=== PATIENT | male | born 1940 | race Hispanic/Latino ===

== ENCOUNTER 2021-09-15 18:00 | Emergency (ER) | payer MEDICARE ==
[2021-09-15] MEDS ORDERED: ACETAMINOPHEN 325 MG TAB PO ONE (18:51)
[2021-09-15] MEDS ORDERED: TETANUS,DIPH,PERTUSS(ACELL) VACCINE 0.5 ML SYRINGE IM ONE (18:51)
[2021-09-15 19:01] VITALS: BP 155/59
--- NOTE | 2021-09-15 19:09 | Emergency Department Report ---
ED Fall HPI - General Chief Complaint: Extremity Injury, Upper Stated Complaint: FELL INJURED HEAD/HAND Time Seen by Provider: 09/15/21 18:50 Source: patient Mode of arrival: Ambulatory - History of Present Illness Initial Comments: Patient is a 81-year-old male who presents emergency room complaints of a fall that occurred earlier today. Patient states that he accidentally stepped wrong off the curb and fell and landed on a left outstretched hand and hit his head against the ground. He is complaining of left hand pain and swelling. He also has an abrasion to his forehead. Patient states that he is on Xarelto. He denies any loss of consciousness, vomiting, vision changes, numbness, weakness. He is unsure of his last tetanus immunization. He has an allergy to codeine. - Related Data Home Medications Medication Instructions Recorded Confirmed Last Taken Cholecalciferol (Vitamin D3) 5,000 unit PO DAILY 01/30/16 01/30/16 Unknown [Vitamin D3] Cyanocobalamin [Vitamin B-12] 1,000 mcg IM QMONTH 01/30/16 01/30/16 Unknown Levothyroxine Sodium [Synthroid] 175 mcg PO QDAY 01/30/16 01/30/16 Unknown Primidone [Mysoline] 500 mg PO QHS 01/30/16 01/30/16 Unknown Primidone [Mysoline] 750 mg PO QAM 01/30/16 01/30/16 Unknown Propranolol HCl 20 mg PO TID 01/30/16 01/30/16 Unknown Rivaroxaban [Xarelto] 20 mg PO QDAY 01/30/16 01/30/16 Unknown Sertraline [Zoloft] 150 mg PO QHS 01/30/16 01/30/16 Unknown Simvastatin (NF) [Zocor TAB] 40 mg PO QHS 01/30/16 01/30/16 Unknown Zolpidem [Ambien] 5 mg PO QHS PRN 01/30/16 01/30/16 Unknown buPROPion SR [Wellbutrin SR] 150 mg PO QAM 01/30/16 01/30/16 Unknown clonazePAM 1 mg PO QHS 01/30/16 01/30/16 Unknown Previous Rx's Medication Instructions Recorded Last Taken Type Amoxicillin/K Clav Tab [Augmentin 1 each PO Q12HR #20 tablet 02/04/16 Unknown Rx 500 MG TAB] HYDROcodone/APAP 5-325 [[place] 1 each PO Q6HR PRN #30 tablet 02/04/16 Unknown Rx 5-325 mg TAB] Acetaminophen [Tylenol] 650 mg PO Q8HR PRN #20 capsule 09/15/21 Unknown Rx traMADoL [Ultram 50 MG tab] 50 mg PO Q6HR PRN #8 tablet 09/15/21 Unknown Rx Allergies Allergy/AdvReac Type Severity Reaction Status Date / Time codeine Allergy Hives Verified 01/30/16 11:31 ED Review of Systems ROS: Stated complaint: FELL INJURED HEAD/HAND Other details as noted in HPI Comment: All other systems reviewed and negative ED Past Medical Hx - Past Medical History Hx Hypertension: Yes Hx Heart Attack/AMI: No Hx Congestive Heart Failure: No Hx Diabetes: No Hx Liver Disease: No Hx Seizures: No Hx Kidney Stones: Yes Hx Psychiatric Treatment: Yes (Depression) Hx Asthma: No Hx COPD: No Additional medical history: essential tremors. AFIB. Sleep apnea - Surgical History Additional Surgical History: cataract surg YOLI eyes - Social History Smoking Status: Never Smoker - Medications Home Medications: Home Medications Medication Instructions Recorded Confirmed Last Taken Type Cholecalciferol (Vitamin D3) 5,000 unit PO DAILY 01/30/16 01/30/16 Unknown History [Vitamin D3] Cyanocobalamin [Vitamin B-12] 1,000 mcg IM QMONTH 01/30/16 01/30/16 Unknown History Levothyroxine Sodium [Synthroid] 175 mcg PO QDAY 01/30/16 01/30/16 Unknown History Primidone [Mysoline] 500 mg PO QHS 01/30/16 01/30/16 Unknown History Primidone [Mysoline] 750 mg PO QAM 01/30/16 01/30/16 Unknown History Propranolol HCl 20 mg PO TID 01/30/16 01/30/16 Unknown History Rivaroxaban [Xarelto] 20 mg PO QDAY 01/30/16 01/30/16 Unknown History Sertraline [Zoloft] 150 mg PO QHS 01/30/16 01/30/16 Unknown History Simvastatin (NF) [Zocor TAB] 40 mg PO QHS 01/30/16 01/30/16 Unknown History Zolpidem [Ambien] 5 mg PO QHS PRN 01/30/16 01/30/16 Unknown History buPROPion SR [Wellbutrin SR] 150 mg PO QAM 01/30/16 01/30/16 Unknown History clonazePAM 1 mg PO QHS 01/30/16 01/30/16 Unknown History Amoxicillin/K Clav Tab [Augmentin 1 each PO Q12HR #20 tablet 02/04/16 Unknown Rx 500 MG TAB] HYDROcodone/APAP 5-325 [[place] 1 each PO Q6HR PRN #30 tablet 02/04/16 Unknown Rx 5-325 mg TAB] Acetaminophen [Tylenol] 650 mg PO Q8HR PRN #20 capsule 09/15/21 Unknown Rx traMADoL [Ultram 50 MG tab] 50 mg PO Q6HR PRN #8 tablet 09/15/21 Unknown Rx ED Physical Exam - General Limitations: No Limitations General appearance: alert, in no apparent distress - Head Head exam: Present: other (abrasion present to the left forehead, no facial or bony skull ttp, no crepitus, no deformity) - Eye Eye exam: Present: normal appearance, PERRL, EOMI, other (no signs of entrapment ). Absent: periorbital swelling, periorbital tenderness - ENT ENT exam: Present: mucous membranes moist - Neck Neck exam: Present: normal inspection, full ROM. Absent: tenderness, meningismus - Respiratory Respiratory exam: Present: normal lung sounds bilaterally. Absent: respiratory distress, wheezes, rales, rhonchi, stridor, chest wall tenderness, accessory muscle use, decreased breath sounds, prolonged expiratory - Cardiovascular Cardiovascular Exam: Present: regular rate, normal rhythm, normal heart sounds. Absent: systolic murmur, diastolic murmur, rubs, gallop - Extremities Exam Extremities exam: Present: other (there is ecchymosis and edema present to the left pinky and left hand, ttp to the left hand and pinky and left wrist, decreased ROM secondary to pain, small abrasion to the right pinky, no bony ttp of the RUE, FROM of the RUE, neurovascularly intact, subungual hematoma left pinky nail, nail intact) - Back Exam Back exam: Present: normal inspection, full ROM. Absent: paraspinal tenderness, vertebral tenderness - Neurological Exam Neurological exam: Present: alert, oriented X3 - Psychiatric Psychiatric exam: Present: normal affect, normal mood - Skin Skin exam: Present: warm, dry ED Course Vital Signs 09/15/21 18:31 Temperature 98.4 F Pulse Rate 72 Respiratory 20 Rate Blood Pressure 155/59 O2 Sat by Pulse 99 Oximetry ED Medical Decision Making - Radiology Data Radiology results: report reviewed Ordering Physician: KARON ROBERTS Date of Service: 09/15/21 Procedure(s): CT facial bones wo con Accession Number(s): [id number] cc: KARON ROBERTS CT MAXILLOFACIAL WITHOUT CONTRAST INDICATION / CLINICAL INFORMATION: fall, left facial abrasion, on xarelto. TECHNIQUE: All CT scans at this location are performed using CT dose reduction for ALARA by means of automated exposure control. COMPARISON: None available. FINDINGS: FACIAL BONES: There is hematoma and edema involving left frontal scalp. Howev er, there is no clear CT evidence of acute fracture of the facial bones. The orbital flores, sinuses and zygomatic arches appear intact. PARANASAL SINUSES: There is prominence air-fluid level posteriorly within the left sphenoid sinus. There is mild mucosal thickening along the anterior sphenoid sinuses. There is also scattered opacification and mucosal thickening within the ethmoid air cells. The nasal septum is essentially midline. ORBITS: The optic globes demonstrate appropriate size and configuration. No significant post septal inflammatory changes are identified. VISUALIZED INTRACRANIAL STRUCTURES: The CT Brain will be dictated separately. ADDITIONAL FINDINGS: None. IMPRESSION: 1. There is a hematoma involving left frontal scalp. However, there is no clear CT evidence of acute fracture of the facial bones. 2. There is sinus inflammatory disease as described. Signer Name: Alan Reddy MD Signed: 09/15/2021 7:43 PM Workstation Name: [id number] Transcribed By: MR Dictated By: Alan Reddy MD Electronically Authenticated By: Alan Reddy MD Signed Date/Time: 09/15/211942 DD/ 38 TD/TT: Ordering Physician: KARON ROBERTS Date of Service: 09/15/21 Procedure(s): XR hand 3+V LT Accession Number(s): [id number] cc: KARON ROBERTS Fluoro Time In Minutes: LEFT HAND, 3 VIEWS INDICATION / CLINICAL INFORMATION: fall, left pinky/left hand injury. COMPARISON: None available. FINDINGS: There is a mildly displaced dominant noted intra-articular fracture through the base of the proximal phalanx of the little finger. There is also the suggestion of a nondisplaced fracture through the distal metadiaphysis of the fourth metacarpal bone. Degenerative changes are noted throughout the interphalangeal joints. IMPRESSION: 1. Mildly displaced comminuted intra-articular fracture involving the base of the proximal phalanx of the little finger. 2. Nondisplaced nonintra-articular fracture involving the distal metadiaphysis of the fourth metacarpal. Signer Name: Nani Whitfield MD Signed: 09/15/2021 7:21 PM Workstation Name: [id number] Transcribed By: Dictated By: Nani Whitfield MD Electronically Authenticated By: Nani Whitfield MD Signed Date/Time: 09/15/211920 DD/ 17 TD/TT: Ordering Physician: KARON ROBERTS Date of Service: 09/15/21 Procedure(s): XR wrist 3+V LT Accession Number(s): [id number] cc: KARON ROBERTS Fluoro Time In Minutes: LEFT WRIST 3 VIEWS INDICATION / CLINICAL INFORMATION: fall, left pinky/left hand injury. COMPARISON: None available. FINDINGS: Cortical irregularity along the anterior aspect of the distal radius suggesting very subtle fracture. This is not confirmed on the additional views. No malalignment. No additional suspected area of fracture. IMPRESSION: Suspect very subtle fracture involving the distal radius based on cortical irregularity on the lateral view noted along the anterior aspect of the radius. Signer Name: Nani Whitfield MD Signed: 09/15/2021 7:22 PM Workstation Name: [id number] Transcribed By: Dictated By: Nani Whitfield MD Electronically Authenticated By: Nani Whitfield MD Signed Date/Time: 09/15/211921 DD/ 20 TD/TT: Ordering Physician: KARON ROBERTS Date of Service: 09/15/21 Procedure(s): CT head/brain wo con Accession Number(s): [id number] cc: KARON ROBERTS CT head/brain wo con INDICATION / CLINICAL INFORMATION: 81 years Male; fall, abrasion to left forehead, on xarelto. TECHNIQUE: Routine CT head without contrast. All CT scans at this location are performed using CT dose reduction for ALARA by means of automated exposure control. COMPARISON: None. FINDINGS: BRAIN / INTRACRANIAL CONTENTS: There is moderate cerebral white matter disease most consistent with microvascular angiopathy. This mild cerebral atrophy with associated prominence of the ventricular system. There is no clear CT evidence of acute intracranial hemorrhage or significant mass effect. ORBITS: No significant abnormality of visualized orbits. SINUSES / MASTOIDS: There is edema involving the left frontal scalp. There is mild mucosal thickening within the ethmoid air cells at. There is moderate air-fluid level along the posterior left sphenoid sinus. CRANIOCERVICAL JUNCTION: No significant abnormality. ADDITIONAL FINDINGS: The calvarium appears intact. IMPRESSION: 1. There is edema involving left frontal scalp without CT evidence of acute intracranial hemorrhage. 2. 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 Signer Name: Alan Reddy MD Signed: 09/15/2021 7:38 PM Workstation Name: [id number] Transcribed By: MR Dictated By: Alan Reddy MD Electronically Authenticated By: Alan Reddy MD Signed Date/Time: 09/15/211937 DD/ 35 TD/TT: - Medical Decision Making Patient is a 81-year-old male who presents emergency room complaints of a fall that occurred earlier today. Patient states that he accidentally stepped wrong off the curb and fell and landed on a left outstretched hand and hit his head against the ground. He is complaining of left hand pain and swelling. He also has an abrasion to his forehead. Patient states that he is on Xarelto. He denies any loss of consciousness, vomiting, vision changes, numbness, weakness. He is unsure of his last tetanus immunization. He has an allergy to codeine. Vitals are stable. On exam:there is ecchymosis and edema present to the left pinky and left hand, ttp to the left hand and pinky and left wrist, decreased ROM secondary to pain, small abrasion to the right pinky, no bony ttp of the RUE, FROM of the RUE, neurovascularly intact, subungual hematoma left pinky nail, nail intact, abrasion present to the left forehead, no facial or bony skull ttp, no crepitus, no deformity. CT facial bones: 1. There is a hematoma involving left frontal scalp. However, there is no clear CT evidence of acute fracture of the facial bones. 2. There is sinus inflammatory disease as described. XR left hand: 1. Mildly displaced comminuted intra-articular fracture involving the base of the proximal phalanx of the little finger. 2. Nondisplaced nonintra-articular fracture involving the distal metadiaphysis of the fourth metacarpal. XR left wrist: IMPRESSION: Suspect very subtle fracture involving the distal radius based on cortical irregularity on the lateral view noted along the anterior aspect of the radius. CT head without contrast: 1. There is edema involving left frontal scalp without CT evidence of acute intracranial hemorrhage. 2. 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 Discussed all results with patient and answer questions. Patient given tetanus immunization and Tylenol. Patient placed in sugar tong splint and the splint was extended past the fingertips. Patient remained neurovascularly intact. Discussed the importance of outpatient primary care and orthopedic follow-up. Discussed very strict return precautions with patient. Advised patient Please take medication as prescribed. Follow-up with a orthopedic doctor. Follow-up with your primary care doctor. Return to emergency room for any new or worsening symptoms. Critical care attestation.: If time is entered above; I have spent that time in minutes in the direct care of this critically ill patient, excluding procedure time. ED Disposition Clinical Impression: Scalp hematoma Qualifiers: Encounter type: initial encounter Qualified Code(s): S00.03XA - Contusion of scalp, initial encounter Forehead abrasion Qualifiers: Encounter type: initial encounter Qualified Code(s): S00.81XA - Abrasion of other part of head, initial encounter Fracture of phalanx of little finger Qualifiers: Encounter type: initial encounter Fracture type: closed Phalanx: proximal Fracture alignment: displaced Laterality: left Qualified Code(s): S62.617A - Displaced fracture of proximal phalanx of left little finger, initial encounter for closed fracture Closed fracture of 4th metacarpal Qualifiers: Encounter type: initial encounter Metacarpal location: unspecified portion of metacarpal Fracture alignment: nondisplaced Laterality: left Qualified Code(s): S62.305A - Unspecified fracture of fourth metacarpal bone, left hand, initial encounter for closed fracture Distal radius fracture Qualifiers: Encounter type: initial encounter Fracture type: closed Fracture morphology: unspecified fracture morphology Laterality: left Qualified Code(s): S52.502A - Unspecified fracture of the lower end of left radius, initial encounter for closed fracture Disposition: HOME / SELF CARE / HOMELESS Is pt being admited?: No Does the pt Need Aspirin: No Condition: Stable Additional Instructions: Please take medication as prescribed. Follow-up with a orthopedic doctor. Follow-up with your primary care doctor. Return to emergency room for any new or worsening symptoms. Prescriptions: Acetaminophen [Tylenol] 650 mg PO Q8HR PRN #20 capsule PRN Reason: pain traMADoL [Ultram 50 MG tab] 50 mg PO Q6HR PRN #8 tablet PRN Reason: Pain , Severe (7-10) Referrals: [facility] [Provider Group] - 2-3 Days CHICA PITTS MD [Staff Physician] - 2-3 Days your, primary care doctor [Other] - 2-3 Days Time of Disposition: 20:05 Print Language: LAO
--- NOTE | 2021-09-15 19:25 | XRay Report ---
LEFT HAND, 3 VIEWS INDICATION / CLINICAL INFORMATION: fall, left pinky/left hand injury. COMPARISON: None available. FINDINGS: There is a mildly displaced dominant noted intra-articular fracture through the base of the proximal phalanx of the little finger. There is also the suggestion of a nondisplaced fracture through the distal metadiaphysis of the fourt h metacarpal bone. Degenerative changes are noted throughout the interphalangeal joints. IMPRESSION: 1. Mildly displaced comminuted intra-articular fracture involving the base of the proximal phalanx of the little finger. 2. Nondisplaced nonintra-articular fracture involving the distal metadiaphysis of the fourth metacarp al. Signer Name: Nani Whitfield MD Signed: 09/15/2021 7:21 PM Workstation Name: [id number]
--- NOTE | 2021-09-15 19:27 | XRay Report ---
LEFT WRIST 3 VIEWS INDICATION / CLINICAL INFORMATION: fall, left pinky/left hand injury. COMPARISON: None available. FINDINGS: Cortical irregularity along the anterior aspect of the distal radius suggesting very subtle fracture. This is not confirmed on the additional views. No malalignment. No additional suspected area of frac ture. IMPRESSION: Suspect very subtle fracture involving the distal radius based on cortical irregularity o n the lateral view noted along the anterior aspect of the radius. Signer Name: Nani Whitfield MD Signed: 09/15/2021 7:22 PM Workstation Name: [id number]
--- NOTE | 2021-09-15 19:43 | Cat Scan Report ---
CT head/brain wo con INDICATION / CLINICAL INFORMATION: 81 years Male; fall, abrasion to left forehead, on xarelto. TECHNIQUE: Routine CT head without contrast. All CT scans at this location are performed using CT dos e reduction for ALARA by means of automated exposure control. COMPARISON: None. FINDINGS: BRAIN / INTRACRANIAL CONTENTS: There is moderate cerebral white matter disease most consistent with m icrovascular angiopathy. This mild cerebral atrophy with associated prominence of the ventricular sys tem. There is no clear CT evidence of acute intracranial hemorrhage or significant mass effect. ORBITS: No significant abnormality of visualized orbits. SINUSES / MASTOIDS: There is edema involving the left frontal scalp. There is mild mucosal thickening within the ethmoid air cells at. There is moderate air-fluid level along the posterior left sphenoid sinus. CRANIOCERVICAL JUNCTION: No significant abnormality. ADDITIONAL FINDINGS: The calvarium appears intact. IMPRESSION: 1. There is edema involving left frontal scalp without CT evidence of acute intracranial hemorrhage. 2. 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 Signer Name: Alan Reddy MD Signed: 09/15/2021 7:38 PM Workstation Name: [id number]
--- NOTE | 2021-09-15 19:47 | Cat Scan Report ---
CT MAXILLOFACIAL WITHOUT CONTRAST INDICATION / CLINICAL INFORMATION: fall, left facial abrasion, on xarelto. TECHNIQUE: All CT scans at this location are performed using CT dose reduction for ALARA by means of automated e xposure control. COMPARISON: None available. FINDINGS: FACIAL BONES: There is hematoma and edema involving left frontal scalp. However, there is no clear CT evidence of acute fracture of the facial bones. The orbital flores, sinuses and zygomatic arches appe ar intact. PARANASAL SINUSES: There is prominence air-fluid level posteriorly within the left sphenoid sinus. Th ere is mild mucosal thickening along the anterior sphenoid sinuses. There is also scattered opacifica tion and mucosal thickening within the ethmoid air cells. The nasal septum is essentially midline. ORBITS: The optic globes demonstrate appropriate size and configuration. No significant post septal i nflammatory changes are identified. VISUALIZED INTRACRANIAL STRUCTURES: The CT Brain will be dictated separately. ADDITIONAL FINDINGS: None. IMPRESSION: 1. There is a hematoma involving left frontal scalp. However, there is no clear CT evidence of acut e fracture of the facial bones. 2. There is sinus inflammatory disease as described. Signer Name: Alan Reddy MD Signed: 09/15/2021 7:43 PM Workstation Name: [id number]
== END 2021-09-15 21:34 | disposition home or self-care (01) ==
LOC: ED 18:00
DX: S62.617A Displaced fracture of proximal phalanx of left little finger, initial encounter for closed fracture (principal); S62.305A Unspecified fracture of fourth metacarpal bone, left hand, initial encounter for closed fracture; S52.502A Unspecified fracture of the lower end of left radius, initial encounter for closed fracture; S00.81XA Abrasion of other part of head, initial encounter; I10 Essential (primary) hypertension; R22.32 Localized swelling, mass and lump, left upper limb; S00.03XA Contusion of scalp, initial encounter; W19.XXXA Unspecified fall, initial encounter; Y93.89 Activity, other specified; Y92.89 Other specified places as the place of occurrence of the external cause; Y99.8 Other external cause status
CPT/HCPCS: 70450; 70486; 90471; 90715; 99284

== ENCOUNTER 2021-11-10 09:26 | Emergency (ER) | payer MEDICARE ==
[2021-11-10] MEDS ORDERED: fentaNYL 100 MCG/2 ML INJ IV ONE (10:05)
[2021-11-10] MEDS ORDERED: ONDANSETRON 4 MG/2 ML INJ IM ONE (10:05)
[2021-11-10] MEDS ORDERED: fentaNYL 100 MCG/2 ML INJ IM ONE ×2 (10:11→12:46)
--- NOTE | 2021-11-10 10:11 | Emergency Department Report ---
HPI - General Chief Complaint: Back Pain/Injury Time Seen by Provider: 11/10/21 09:51 - HPI HPI: Room 17 The patient is an 81-year-old male present with a chief complaint of back pain. Patient states he started having low back pain approximate 3 weeks ago the pain waxes and wanes. Patient states the pain worsens with movement. Patient describes the pain as sharp in nature. Patient denies nausea/vomiting, dysuria or hematuria. Patient denies history of fever. Patient denies abdominal pain. Patient states it feels similar to kidney stones he has had in the past. Patient currently gets his pain a score of 8-9/10 ED Past Medical Hx - Past Medical History Hx Hypertension: Yes Hx Diabetes: Yes (Diet controlled) Hx Kidney Stones: Yes Hx Psychiatric Treatment: Yes (Depression) Additional medical history: essential tremors, hypothyroidism. AFIB. Sleep apnea - Surgical History Hx Cholecystectomy: Yes Additional Surgical History: cataract surg YOLI eyes - Family History Family history: no significant - Social History Smoking Status: Former Smoker (None x20 years) Substance Use Type: Alcohol (Rarely) - Medications Home Medications: Home Medications Medication Instructions Recorded Confirmed Last Taken Type Cholecalciferol (Vitamin D3) 5,000 unit PO DAILY 01/30/16 01/30/16 Unknown History [Vitamin D3] Cyanocobalamin [Vitamin B-12] 1,000 mcg IM QMONTH 01/30/16 01/30/16 Unknown History Levothyroxine Sodium [Synthroid] 175 mcg PO QDAY 01/30/16 01/30/16 Unknown History Primidone [Mysoline] 500 mg PO QHS 01/30/16 01/30/16 Unknown History Primidone [Mysoline] 750 mg PO QAM 01/30/16 01/30/16 Unknown History Propranolol HCl 20 mg PO TID 01/30/16 01/30/16 Unknown History Rivaroxaban [Xarelto] 20 mg PO QDAY 01/30/16 01/30/16 Unknown History Sertraline [Zoloft] 150 mg PO QHS 01/30/16 01/30/16 Unknown History Simvastatin (NF) [Zocor TAB] 40 mg PO QHS 01/30/16 01/30/16 Unknown History Zolpidem [Ambien] 5 mg PO QHS PRN 01/30/16 01/30/16 Unknown History buPROPion SR [Wellbutrin SR] 150 mg PO QAM 01/30/16 01/30/16 Unknown History clonazePAM 1 mg PO QHS 01/30/16 01/30/16 Unknown History Amoxicillin/K Clav Tab [Augmentin 1 each PO Q12HR #20 tablet 02/04/16 Unknown Rx 500 MG TAB] HYDROcodone/APAP 5-325 [[place] 1 each PO Q6HR PRN #30 tablet 02/04/16 Unknown Rx 5-325 mg TAB] Acetaminophen [Tylenol] 650 mg PO Q8HR PRN #20 capsule 09/15/21 Unknown Rx traMADoL [Ultram 50 MG tab] 50 mg PO Q6HR PRN #8 tablet 09/15/21 Unknown Rx HYDROcodone/APAP 5-325 [[place] 1 - 2 each PO Q6HR PRN #20 tablet 11/10/21 Unknown Rx 5/325] Ketorolac [Toradol] 10 mg PO Q6H PRN #16 tablet 11/10/21 Unknown Rx Promethazine HCl [Phenergan SUPPOS] 25 mg RC Q6H PRN #5 supp.rect 11/10/21 Unknown Rx Promethazine [Phenergan] 25 mg PO Q6HR PRN #20 tab 11/10/21 Unknown Rx ED Review of Systems ROS: Stated complaint: back pain Other details as noted in HPI Constitutional: denies: fever Eyes: denies: eye pain ENT: denies: throat pain Respiratory: no symptoms reported Cardiovascular: denies: chest pain Endocrine: no symptoms reported Gastrointestinal: denies: abdominal pain, nausea, vomiting Genitourinary: denies: dysuria, hematuria Musculoskeletal: back pain Neurological: denies: headache Physical Exam - Physical Exam Physical Exam: GENERAL: The patient is well-developed well-nourished male lying on stretcher not appearing to be in acute distress. [] HEENT: Normocephalic. Atraumatic. Extraocular motions are intact. Patient has moist mucous membranes. NECK: Supple. Trachea midline CHEST/LUNGS: Clear to auscultation. There is no respiratory distress noted. HEART/CARDIOVASCULAR: Irregularly irregular. There is no tachycardia. There is no gallop rub or murmur. ABDOMEN: Abdomen is soft, nontender. Patient has normal bowel sounds. There is no abdominal distention. There are no abdominal bruits SKIN: There is no rash. There is no edema. There is no diaphoresis. NEURO: The patient is awake, alert, and oriented. The patient is cooperative. The patient has no focal neurologic deficits. The patient has normal speech. GCS 15 MUSCULOSKELETAL: There is right paraspinous lumbar pain. No axial step-off. There is no evidence of acute injury. ED Medical Decision Making - Lab Data Result diagrams: 11/10/21 10:48 11/10/21 10:48 Laboratory Tests 11/10/21 11/10/21 11/10/21 10:48 10:48 11:25 WBC 9.5 RBC 4.95 Hgb 14.3 Hct 43.1 MCV 87 MCH 29 MCHC 33 RDW 12.9 L Plt Count 219 Lymph % (Auto) 16.0 Haakon % (Auto) 5.7 Eos % (Auto) 0.7 Baso % (Auto) 0.9 Lymph # (Auto) 1.5 Haakon # (Auto) 0.5 Eos # (Auto) 0.1 Baso # (Auto) 0.1 Seg Neutrophils % 76.7 H Seg Neutrophils # 7.3 Sodium 139 Potassium 3.7 Chloride 99.9 Carbon Dioxide 26 Anion Gap 17 BUN 19 Creatinine 0.7 L Estimated GFR > 60 BUN/Creatinine Ratio 27 Glucose 156 H Calcium 9.5 Urine Color Straw Urine Turbidity Clear Urine pH 8.0 H Ur Specific [place] 1.010 Urine Protein <15 mg/dl Urine Glucose (UA) Neg Urine Ketones Neg Urine Blood Neg Urine Nitrite Neg Urine Bilirubin Neg Urine Urobilinogen < 2.0 Ur Leukocyte Esterase Neg Urine WBC (Auto) < 1.0 Urine RBC (Auto) < 1.0 - Radiology Data Radiology results: report reviewed (CT abdomen pelvis), image reviewed (CT abdomen pelvis) [address] [address] Cat Scan Report Signed Patient: ANTONI ANDREWS MR#: [id number] : 1940 Acct:[id number] Age/Sex: 81 / M ADM Date: 11/10/21 Loc: ED Attending Dr: Ordering Physician: CHANDAN SUGGS MD Date of Service: 11/10/21 Procedure(s): CT abdomen pelvis wo con Accession Number(s): [id number] cc: CHANDAN SUGGS MD CT abdomen pelvis wo con INDICATION: Lumbar and right flank pain. COMPARISON: None TECHNIQUE: Abdominal and pelvic CT exam performed. All CT scans at this location are performed using CT dose reduction for ALARA by means of automated exposure control. FINDINGS: CT ABDOMEN and PELVIS: Lung Bases: No significant abnormalit y. Liver: No significant abnormality. Biliary: Gallbladder is surgically absent. Spleen: No significant abnormality. Pancreas: No significant abnormality. Adrenals: No significant abnormality. Kidneys: 1.1 cm stone seen in the mid right ureter. Mild right hydronephrosis. There are a few other small bilateral nonobstructing stones measure up to approximately 3 mm. Lymphatics: No lymphadenopathy. Vasculature: No significant abnormality. Bowel: No significant abnormality. Normal appendix. The appendix extends slight into a small right fat-containing inguinal hernia (Amyand hernia). Pelvis: No significant abnormality. Osseous Structures: No aggressive osseous lesion. Additional Findings: None IMPRESSION: 1. 1.1 cm stone seen in the right mid ureter resulting in mild hydroureteronephrosis. Signer Name: Diomedes Brewer MD Signed: 11/10/2021 11:00 AM Workstation Name: [id number] Transcribed By: TARIK Dictated By: Diomedes Brewer MD Electronically Authenticated By: Diomedes Brewer MD Signed Date/Time: 11/10/21 1100 DD/ 1054 TD/TT: Print Cancel - Differential Diagnosis Lumbar radiculopathy, renal colic, pyelonephritis, Critical care attestation.: If time is entered above; I have spent that time in minutes in the direct care of this critically ill patient, excluding procedure time. ED Disposition Clinical Impression: Acute back pain, Renal colic on right side Disposition: 01 HOME / SELF CARE / HOMELESS Is pt being admited?: No Does the pt Need Aspirin: No Condition: Stable Additional Instructions: Return to the emergency department should you develop worsening symptoms, inability to tolerate food or liquids, high fever or any other concerns Prescriptions: HYDROcodone/APAP 5-325 [[place] 5/325] 1 - 2 each PO Q6HR PRN #20 tablet PRN Reason: Pain Promethazine [Phenergan] 25 mg PO Q6HR PRN #20 tab PRN Reason: Nausea Promethazine HCl [Phenergan SUPPOS] 25 mg RC Q6H PRN #5 supp.rect PRN Reason: Vomiting Ketorolac [Toradol] 10 mg PO Q6H PRN #16 tablet PRN Reason: Pain Referrals: LY ALAMO MD [Staff Physician] - [facility] (Dr. Alamo is a urologist. Please follow-up with him for further evaluation) Time of Disposition: 12:45
--- NOTE | 2021-11-10 11:05 | Cat Scan Report ---
CT abdomen pelvis wo con INDICATION: Lumbar and right flank pain. COMPARISON: None TECHNIQUE: Abdominal and pelvic CT exam performed. All CT scans at this location are performed using CT dose reduction for ALARA by means of automated exposure control. FINDINGS: CT ABDOMEN and PELVIS: Lung Bases: No significant abnormality. Liver: No significant abnormality. Biliary: Gallbladder is surgically absent. Spleen: No significant abnormality. Pancreas: No significant abnormality. Adrenals: No significant abnormality. Kidneys: 1.1 cm stone seen in the mid right ureter. Mild right hydronephrosis. There are a few other small bilateral nonobstructing stones measure up to approximately 3 mm. Lymphatics: No lymphadenopathy. Vasculature: No significant abnormality. Bowel: No significant abnormality. Normal appendix. The appendix extends slight into a small right f at-containing inguinal hernia (Amyand hernia). Pelvis: No significant abnormality. Osseous Structures: No aggressive osseous lesion. Additional Findings: None IMPRESSION: 1. 1.1 cm stone seen in the right mid ureter resulting in mild hydroureteronephrosis. Signer Name: Diomedes Brewer MD Signed: 11/10/2021 11:00 AM Workstation Name: [id number]
[2021-11-10 11:08] LABS: Basophils # (Auto) 0.1 K/mm3 (0.0-0.1); Basophils % (Auto) 0.9 % (0.0-1.8); Eosinophils # (Auto) 0.1 K/mm3 (0.0-0.4); Eosinophils % (Auto) 0.7 % (0.0-4.3); Hematocrit 43.1 % (35.5-45.6); Hemoglobin 14.3 gm/dl (11.8-15.2); Lymphocytes # (Auto) 1.5 K/mm3 (1.2-5.4); Mean Corpuscular HGB Conc 33 % (32-34); Mean Corpuscular Volume 87 fl (84-94); Monocytes # (Auto) 0.5 K/mm3 (0.0-0.8); Monocytes % (Auto) 5.7 % (0.0-7.3); Platelet Count 219 K/mm3 (140-440); Red Blood Count 4.95 M/mm3 (3.65-5.03); Red Cell Distribution Width 12.9 % (13.2-15.2)
[2021-11-10 11:22] LABS: Blood Urea Nitrogen 19 mg/dL (9-20); Calcium 9.5 mg/dL (8.4-10.2); Hemolysis Index 4
[2021-11-10 11:26] LABS: BUN/Creatinine Ratio 27
[2021-11-10 12:14] LABS: Bilirubin,Urine NEG (Negative); Blood,Urine NEG (Negative); Color,Urine Straw (Yellow); Protein,Urine <15 mg/dL mg/dL (Negative); RBC,Urine < 1.0 /HPF (0.0-6.0); Urobilinogen,Urine < 2.0 mg/dL (<2.0); WBC,Urine < 1.0 /HPF (0.0-6.0)
[2021-11-10] MEDS ORDERED: KETOROLAC 60 MG/2 ML INJ IM ONE (12:46)
[2021-11-10] MEDS ORDERED: IPRATROPIUM 0.02% NEBU 2.5 ML IH ONE (12:50)
[2021-11-10] MEDS ORDERED: ALBUTEROL 2.5 MG/3 ML NEBU IH ONE (12:50)
[2021-11-10 13:28] VITALS: BP 169/93
== END 2021-11-10 13:49 | disposition home or self-care (01) ==
LOC: ED 09:26
DX: N23 Unspecified renal colic (principal); M54.50 Low back pain, unspecified; I10 Essential (primary) hypertension; E11.9 Type 2 diabetes mellitus without complications; F32.9 Major depressive disorder, single episode, unspecified; Z87.891 Personal history of nicotine dependence; Z72.89 Other problems related to lifestyle; Z88.5 Allergy status to narcotic agent; Z79.899 Other long term (current) drug therapy
CPT/HCPCS: 36415; 74176; 80048; 81001; 85025; 96372; 99284; J2405; J3010

== ENCOUNTER 2021-11-24 10:40 | Day surgery (SDC) | payer MEDICARE ==
--- NOTE | 2021-11-23 09:49 | Anesthesia Consultation ---
Anesthesia Consult and Med Hx Date of service: 11/23/21 - Airway Anesthetic Teeth Evaluation: Caps ROM Head & Neck: Adequate Mental/Hyoid Distance: Adequate Mallampati Class: Class III (uvulectomy) Intubation Access Assessment: Possibly Difficult - Pre-Operative Health Status ASA Pre-Surgery Classification: ASA3 Proposed Anesthetic Plan: General - Pulmonary Hx Smoking: No Hx Asthma: No Hx Respiratory Symptoms: No SOB: No COPD: No Home Oxygen Therapy: No Hx Pneumonia: No Hx Sleep Apnea: Yes (uvulectomy ) - Cardiovascular System Hx Hypertension: No Hx Coronary Artery Disease: No Hx Heart Attack/AMI: No Hx Angina: No Hx Percutaneous Transluminal Coronary Angioplasty (PTCA): No Hx Cardia Arrhythmia: Yes (Afib) Hx Pacemaker: No Hx Internal Defibrillator: No Hx Valvular Heart Disease: Yes Hx Heart Murmur: No Hx Peripheral Vascular Disease: No - Central Nervous System Hx Neuromuscular Disorder: Yes (essential tremor, poor eyesight) Hx Seizures: No CVA: No Hx Psychiatric Problems: Yes (depression) - Gastrointestinal Hx Ulcer: No Hx Gastroesophageal Reflux Disease: Yes - Endocrine Hx Renal Disease: Yes (kidney stones) Hx End Stage Renal Disease: No Hx Cirrhosis: No Hx Liver Disease: No Hx Insulin Dependent Diabetes: No Hx Non-Insulin Dependent Diabetes: Yes (Type 2 diabetic controlled with diet) Hx Thyroid Disease: No Hx Hypothyroidism: Yes Hx Hyperthyroidism: No - Hematic Hx Anemia: No Hx Sickle Cell Disease: No - Other Systems Hx Alcohol Use: Yes (RARELY) Hx Substance Use: No Hx Cancer: No Hx Obesity: Yes
[2021-11-23 11:39] LABS: Hematocrit 40.1 % (35.5-45.6); Hemoglobin 12.9 gm/dl (11.8-15.2); Mean Corpuscular HGB Conc 32 % (32-34); Mean Corpuscular Volume 88 fl (84-94); Platelet Count 169 K/mm3 (140-440); Red Blood Count 4.57 M/mm3 (3.65-5.03); Red Cell Distribution Width 13.3 % (13.2-15.2)
[2021-11-23 12:00] LABS: Alanine Aminotransferase 13 units/L (7-56); Albumin 4.2 g/dL (3.9-5); BUN/Creatinine Ratio 34; Blood Urea Nitrogen 34 mg/dL (9-20); Calcium 9.2 mg/dL (8.4-10.2); Hemolysis Index 4
[~2021-11-24 10:40] MED LIST: IOHEXOL 300 MG/ML 50ML IV ONE; LACTATED RINGERS 1,000 ML IV SCH
[2021-11-24] MEDS ORDERED: ceFAZolin/STERILE WATER 2 GM/20 ML SYRINGE IV NR (12:00)
[2021-11-24] MEDS ORDERED: ceFAZolin/Water 2 GM/20 ML 2 GM/20 ML SYRINGE IV ONE (12:01)
--- NOTE | 2021-11-24 12:29 | Anesthesia Day of Surgery ---
Anesthesia Day of Surgery - Day of Surgery Patient Examined: Yes Patient H&P Reviewed: Yes Patient is NPO: Yes
--- NOTE | 2021-11-24 13:17 | Post Operative Note ---
Date of procedure: 11/24/21 Pre-op diagnosis: r uereteral stone Post-op diagnosis: same Findings: as above Procedure: cysto rpg stent Anesthesia: GETA Surgeon: CAROLA YOST Estimated blood loss: none Pathology: none Condition: stable Disposition: PACU
--- NOTE | 2021-11-24 13:18 | Discharge Summary ---
Short Stay Discharge Plan Activity: avoid flexion (no straining ) Weight Bearing Status: Full Weight Bearing Diet: low fat, low cholesterol, low salt Special Instructions: other (in fluids ) Durable Medical Equipment Needed Upon Discharge: other (has stent ) Follow up with: FIOR CAMACHO MD [Primary Care Provider] - 7 Days CAROLA YOST MD [Staff Physician] - 7 Days
[2021-11-24] MEDS ORDERED: LIDOCAINE MPF (2%) 20 MG/1 ML VIAL 5 ML ONE (13:31)
[2021-11-24] MEDS ORDERED: fentaNYL 100 MCG/2 ML INJ ONE (13:32)
[2021-11-24] MEDS ORDERED: propofoL 200 MG/20 ML VIAL IV ONE (13:32)
[2021-11-24] MEDS ORDERED: PHENYLEPHRINE/NS 1,000 MCG/10 ML SYRINGE (OR USE) IV ONE (13:36)
[2021-11-24] MEDS ORDERED: WATER FOR IRRIG STERILE 2000 ML IR ONE (14:12)
[2021-11-24] MEDS ORDERED: IOHEXOL 300 MG/ML 50ML IV ONE (14:16)
[2021-11-24] MEDS ORDERED: FUROSEMIDE 40 MG/4 ML INJ ONE (15:07)
--- NOTE | 2021-11-24 15:48 | Fluoroscopy Report ---
FLUOROSCOPY RETROGRADE UROGRAPHY FLUOROSCOPY URETER/NEPHROSTOMY DILATATION RIGHT HISTORY: Right ureteral stone FINDINGS: Fluoroscopy was provided by radiology during retrograde urography by the urologist. The brittney ges demonstrate at least 2 filling defects in the mid to distal right ureter consistent with stones w ith upstream right hydronephrosis. Subsequent images demonstrate right ureteroscopy, balloon dilatati on of the right ureter and placement of a right ureteral stent which is in good position on the final image with good drainage of the right collecting system. No images of the left collecting system are provided. IMPRESSION: Right ureteral stone removal and right ureteral stent placement as described. Fluoroscopy time: 1.8 minutes Fluoroscopic images: 12 Signer Name: Kirk Mckenzie Jr, MD Signed: 11/24/2021 3:44 PM Workstation Name: [id number]
--- NOTE | 2021-11-24 16:06 | Post Anesthesia Evaluation ---
- Post Anesthesia Evaluation Patient Participated: Yes Airway Patent: Yes Stable Respiratory Function: Yes Nausea/Vomiting: No Temp > 96.8F: Yes Pain Manageable: Yes Adequeate Hydration: Yes Anesthesia Complications: No
[2021-11-24 17:37] VITALS: BP 156/82
--- NOTE | 2021-11-24 17:40 | Operative Report ---
DATE OF SURGERY: 11/24/2021 PREOPERATIVE DIAGNOSIS: Very large right mid ureteral stone. POSTOPERATIVE DIAGNOSIS: Very large right mid ureteral stone. PROCEDURES: Cystoscopy, right retrograde, right ureteral balloon dilatation, ureteroscopy with both rigid and flexible, laser of the stone into about 8 pieces, insertion of double-J stent. SURGEON: Kris Velez MD ANESTHESIA: General. FINDINGS: This is a gentleman with a very large stone in right mid ureter, 1.1 cm. He has moderate hydronephrosis and now presents for treatment. DESCRIPTION OF PROCEDURE: The patient was brought to the operating room and placed on the operating table. Following induction of anesthesia, placed in lithotomy position, prepped and draped in usual sterile fashion. Retrograde showed the stone with severe dilatation above it. The ureter was like in a pocket or a sac. We did a balloon dilatation of distal ureter and with the rigid scope, we could barely get into that pocket. We used fluoroscope, saw the stone and lasered it with both 200 and 270 fiber. The patient tolerated the procedure well. We did not want to extract the stones because there were multiple, so he may need a second stage, but we did laser it into like 8 pieces. The patient tolerated the procedure well. There were no complications and a double-J coiled in the kidney, brought to recovery in stable condition. TID: [id number] RECEIPT: [id number] LORNA/SENDY
== END 2021-11-24 16:40 | disposition home or self-care (01) ==
LOC: OR 10:40
PROVIDERS: ATTEND Urology
DX: N13.2 Hydronephrosis with renal and ureteral calculous obstruction (principal); Z20.822 Contact with and (suspected) exposure to COVID-19; I48.91 Unspecified atrial fibrillation; E11.9 Type 2 diabetes mellitus without complications; K21.9 Gastro-esophageal reflux disease without esophagitis; F32.9 Major depressive disorder, single episode, unspecified; E03.9 Hypothyroidism, unspecified; E66.9 Obesity, unspecified; Z79.899 Other long term (current) drug therapy; Z88.6 Allergy status to analgesic agent; Z98.890 Other specified postprocedural states
CPT/HCPCS: 36415; 52356; 74420; 74485; 80053; 82962; 85027; C1726; C1758; C1769; C2617; J0690; J1940; J2370; J2704; J3010; J3490; J7120; Q9967; U0003